=== PATIENT | female | born 1980 | race Caucasian/White ===

== ENCOUNTER 2017-11-09 13:44 | Emergency (ER) | payer MEDICARE, OTHER ==
[~2017-11-09] VITALS: Ht 163.8 cm; Wt 84.8 kg
[~2017-11-09 13:44] MED LIST: AMITRIPTYLINE H25 MG PO; ATIVAN1 MG PO; B-COMPLEX PLUS1 EACH PO; CELEXA20 MG PO; DAILY MULTIPLE1 EACH PO; GABAPENTIN300 MG PO; MAGNESIUM250 MG PO; MECLIZINE HCL12.5 MG PO; NORCO 7.5-3251 EACH PO; POTASSIUM CHLO10 ME1 PO; PREDNISONE20 MG PO; TESSALON PERLE100 MG PO; TRAZODONE HCL50 MG PO
[2017-11-09 15:52] LABS: CLARITY,URINE CLEAR (CLEAR); COLOR,URINE YELLOW (YELLOW); LEUKOCYTE ESTERASE ,URINE NEGATIVE (NEGATIVE); NITRITE,URINE NEGATIVE (NEGATIVE); PROTEIN,URINE DIPSTICK NEGATIVE (NEGATIVE)
[2017-11-09 15:53] LABS: BILIRUBIN,URINE NEGATIVE (NEGATIVE); KETONES,URINE NEGATIVE (NEGATIVE); PREGNANCY TEST, URINE NEGATIVE (NEGATIVE); URINE UROBILINOGEN 0.2 mg/dL (0.2 - 1)
[2017-11-09 15:59] LABS: HIV 1&2 AB SCREEN NON-REACTIVE (NONREACTIVE)
[2017-11-09 16:14] LABS: BACTERIA,URINE FEW /HPF; EPITHELIAL CELLS,URINE MANY /LPF; WBC,URINE (MAN) 0-5 /HPF (0-5)
== END 2017-11-09 18:45 | disposition home or self-care (01) ==
LOC: ER 13:47
DX: R10.2 Pelvic and perineal pain (principal); T76.21XA Adult sexual abuse, suspected, initial encounter
CPT/HCPCS: 36415; 81001; 81025; 86592; 87390; 87491; 87591; 99284; G0433; G0435; 87081; 87205

== ENCOUNTER 2018-08-07 06:42 | Emergency (ER) | payer OTHER ==
[~2018-08-07] VITALS: Ht 163.8 cm; Wt 84.8 kg
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
[2018-08-07] MEDS ORDERED: FAMOTIDINE 20 MG/2 ML VIAL IV STA (07:10)
[2018-08-07] MEDS ORDERED: SUCRALFATE 1 GM/10 ML SUSP NG ONE (07:15)
[2018-08-07] MEDS ORDERED: SODIUM CHLORIDE 0.9% 1000ML 1,000 ML IV SCH (07:15)
[2018-08-07] MEDS ORDERED: MAGNESIUM/ALUMINUM/SIMETHICONE 30 ML UDC PO ONE (07:15)
--- NOTE | 2018-08-07 08:33 | Diagnostic Imaging Report ---
Exam: Abdominal film Clinical History: Vomiting blood Comparison: None. DISCUSSION: The bowel gas pattern shows no dilated, air-filled loops of bowel. Gas and fecal material are noted throughout the large bowel. No abnormal abdominal calcification, mass effect, or organomegaly. Regional skeletal structures are intact. IMPRESSION: Nonobstructive bowel gas pattern. Signed by: Dr. Ramakrishna Lopez M.D. on 08/07/2018 8:29 AM
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
--- NOTE | 2018-08-07 10:25 | NUR ---
PATIENT CALLED AND ASKED FOR WATER AND SOMETHING FOR NAUSEA. SPOKE WITH JESSICA AND MAREK BEING ORDERED
[2018-08-07 11:22] VITALS: BP 129/93
== END 2018-08-07 11:05 | disposition home or self-care (01) ==
LOC: ER 06:42
DX: R10.13 Epigastric pain (principal); K92.0 Hematemesis; F17.210 Nicotine dependence, cigarettes, uncomplicated
CPT/HCPCS: 74018; 99284; J7030

== ENCOUNTER 2018-09-28 00:54 | Emergency (ER) | payer OTHER ==
[~2018-09-28] VITALS: Ht 163.8 cm; Wt 84.8 kg
--- OUTSIDE RECORDS SUMMARY | 2018-09-28 00:56 | XMS REPORT ---
Author Author [facility] Address Unknown Phone Unavailable Care Team Providers Care Janitor Supervisor Name Role Phone Ila ESPANA Unavailable Unavailable Problems This patient has no known problems. Allergies, Adverse Reactions, Alerts This patient has no known allergies or adverse reactions. Medications This patient has no known medications. Results Test Description Test Time Test Comments Text Results Atomic Results Result Comments ABDOMEN-1VIEW (KUB) 2018-08-07 08:28:00 [place] [address] Patient Name: KAREN RIVERA MR #: [id number] : 1980 Age/Sex: 38/F Req #: [id number] Adm Physician: Ordered by: KULDIP ESPANA MD Report #: [id number] Location: ER Room/Bed: Procedure: [id number] DX/ABDOMEN-1VIEW (KUB) Exam Date: 08/07/18 Exam Time: 0805 REPORT STATUS: Signed Exam: Abdominal film Clinical History: Vomitin g blood Comparison: None. DISCUSSION: The bowel gas pattern shows no dilated, air-filled loops of bowel. Gas and fecal material are noted throughout the large bowel. No abnormal abdominal calcification, mass effect, or organomegaly. Regional skeletal structures are intact. IMPRESSION: Nonobstructive bowel gas pattern. Signed by: Dr. Roque Nielson M.D. on 08/07/2018 8:29 AM Dictated By: ROQUE NIELSON MD 8 Transcribed By: GERRY on 08/07/18828 COPY TO: KULDIP ESPANA MD
[2018-09-28] MEDS ORDERED: LIDOCAINE HCL 2% JELLY 5 ML TUBE ONE (01:24)
[2018-09-28] MEDS ORDERED: LIDOCAINE 1% W/EPINEPHRINE 20 ML VIAL ONE (01:25)
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
[2018-09-28] MEDS ORDERED: BACITRACIN ZINC 0.9GM TP ONE (04:08)
== END 2018-09-28 04:00 | disposition home or self-care (01) ==
LOC: ER 00:54
DX: S41.111A Laceration without foreign body of right upper arm, initial encounter (principal); S51.011A Laceration without foreign body of right elbow, initial encounter; S51.811A Laceration without foreign body of right forearm, initial encounter; W25.XXXA Contact with sharp glass, initial encounter; Y92.008 Other place in unspecified non-institutional (private) residence as the place of occurrence of the external cause; F17.210 Nicotine dependence, cigarettes, uncomplicated
CPT/HCPCS: 12034; 73060; 73090; 73130; 99283; J2001